=== PATIENT | female | born 1985 | race Caucasian/White ===

== ENCOUNTER → 2016-12-08 | Outpatient (CLI) | payer OTHER ==
[~2016-12-08] MED LIST: BUDE10.2 INH; FENTANYL PF 250 MCG/5ML ONE; LINA290C PO; LUBI24CA5 PO; MIDAZOLAM 1 MG/ML, 2ML ONE
== END | disposition home or self-care (01) ==
LOC: STAR 13:16
PROVIDERS: ATTEND Specialist
DX: Z02.9 Encounter for administrative examinations, unspecified (principal)

== ENCOUNTER 2016-12-13 12:53 | Day surgery (SDC) | payer OTHER ==
[~2016-12-13] VITALS: Ht 162.6 cm; Wt 59.0 kg
[~2016-12-13 12:53] MED LIST changes: +DEXAMETHASONE 4 MG/ML, 1ML ONE; -FENTANYL PF 250 MCG/5ML ONE; +GLYCOPYRROLATE 0.2MG/1ML ONE; +KETOROLAC 30 MG/1 ML ONE; -MIDAZOLAM 1 MG/ML, 2ML ONE; +NEOSTIGMINE 1 MG/ML, 10ML ONE; +ONDANSETRON 2MG/ML, 2ML ONE; +PROPOFOL 10 MG/ML, 20ML ONE; +ROCURONIUM 10 MG/ML ONE
[2016-12-13] MEDS ORDERED: LACTATED RINGERS 1,000 ML IV SCH (13:18)
[2016-12-13 14:06] LABS: HCG UR OBC PASS
[2016-12-13] MEDS ORDERED: SILVER NITRATE STICK TP ONE (14:14)
[2016-12-13] MEDS ORDERED: BUPIVACAINE/PF 0.25% ONE (14:14)
[2016-12-13] MEDS ORDERED: ACETAMINOPHEN 325 MG TABLET PO PRN (14:30)
[2016-12-13] MEDS ORDERED: FENTANYL PF 100 MCG/2ML IV PRN (14:30)
[2016-12-13] MEDS ORDERED: METOCLOPRAMIDE 5 MG/ML, 2ML IV PRN (14:30)
[2016-12-13] MEDS ORDERED: PROMETHAZINE 25 MG/ML, 1ML IV PRN (14:30)
[2016-12-13] MEDS ORDERED: MEPERIDINE/PF 25MG/0.5ML IVPush PRN (14:30)
[2016-12-13] MEDS ORDERED: HYDROmorphone 1 MG/ML, 1ML IV PRN (14:30)
[2016-12-13] MEDS ORDERED: ONDANSETRON 2MG/ML, 2ML IVPush PRN ×2 (14:30→17:00)
[2016-12-13] MEDS ORDERED: ACETAMINOPHEN 650 MG/20.3 ML UDC ONE (15:42)
[2016-12-13] MEDS ORDERED: OXYcodone 5 MG/5 ML ORAL.SOL UDC ONE (15:42)
[2016-12-13] MEDS: OXYcodone 5 MG/5 ML ORAL.SOL UDC PO PRN ×2 (15:44→17:25)
[2016-12-13] MEDS ORDERED: OXYcodone 5 MG/5 ML ORAL.SOL UDC PO PRN (17:00)
== END 2016-12-13 18:25 ==
LOC: OUT 12:53
PROVIDERS: ATTEND Specialist
DX: N94.12 Deep dyspareunia (principal); K65.9 Peritonitis, unspecified; J45.909 Unspecified asthma, uncomplicated; K58.9 Irritable bowel syndrome, unspecified; F41.9 Anxiety disorder, unspecified; Z98.890 Other specified postprocedural states; Z87.891 Personal history of nicotine dependence; Z72.89 Other problems related to lifestyle
CPT/HCPCS: 58662; 81025; 88304; 88342; J1100; J1885; J2250; J2405; J2704; J2710; J3010; J3490; J7120; G0461